=== PATIENT | female | born 1990 | race Caucasian/White ===

== ENCOUNTER 2022-01-21 06:40 | Day surgery (SDC) | payer BC, SELFPAY ==
[~2022-01-21] VITALS: Ht 160 cm; Wt 65.8 kg
[2022-01-21 07:31] LABS: HCG,QUAL RESULT NEGATIVE (NEGATIVE)
[2022-01-21] MEDS ORDERED: MEPERIDINE HCL/PF 25 MG/ML DISP.SYRIN IVP PRN (09:15)
[2022-01-21] MEDS ORDERED: MIDAZOLAM HCL 2 MG/2 ML VIAL (VERSED) IVP PRN (09:15)
[2022-01-21] MEDS ORDERED: METOCLOPRAMIDE HCL 10 MG/2 ML VIAL IVP PRN (09:15)
[2022-01-21] MEDS ORDERED: HYDROmorphone 1 MG/ML INJ. CARTRIDGE IVP PRN ×2 (09:15)
[2022-01-21] MEDS ORDERED: LR 1,000 ML IV SCH (09:15)
[2022-01-21] MEDS ORDERED: HYDROcodone/ACETAMIN 5-325 MG TAB (NORCO/ VICODIN) PO PRN (09:30)
[2022-01-21] MEDS ORDERED: ONDANSETRON HCL 4 MG/2 ML VIAL IVP PRN (09:30)
[2022-01-21] MEDS ORDERED: OXYCODONE/ACETAMINOPHEN 5-325 TABLET PO PRN ×2 (09:30)
[2022-01-21] MEDS ORDERED: NS 1000 ML IV.SOLN IV ONE (09:40)
[2022-01-21] MEDS ORDERED: ONDANSETRON HCL 4 MG/2 ML VIAL ONE (09:40)
[2022-01-21] MEDS ORDERED: CEFAZOLIN 1 GM IVPB PREMIX 50 ML IV ONE (09:40)
[2022-01-21] MEDS ORDERED: PROPOFOL 200MG/ 20ML VIAL (DIPRIVAN) IV ONE (09:40)
[2022-01-21] MEDS ORDERED: fentaNYL CITRATE/PF 100 MCG/2 ML AMP ONE (09:40)
[2022-01-21] MEDS ORDERED: MIDAZOLAM HCL 5 MG/ML VIAL (VERSED) IV ONE (09:40)
[2022-01-21] MEDS ORDERED: LR 1,000 ML IV.SOLN IV ONE (09:40)
[2022-01-21] MEDS ORDERED: DEXAMETHASONE SOD PHOSPHATE 4 MG/ML VIAL ONE (09:40)
[2022-01-21] MEDS ORDERED: SEVOFLURANE 15 MIN GAS INH ONE (09:40)
[2022-01-21 11:20] VITALS: BP_SYST 128
== END 2022-01-21 12:45 | disposition home or self-care (01) ==
LOC: SDS 06:40 → SMU 06:43 → SDS 12:45
PROVIDERS: ATTEND Specialist
DX: N93.8 Other specified abnormal uterine and vaginal bleeding (principal); E28.2 Polycystic ovarian syndrome; R93.89 Abnormal findings on diagnostic imaging of other specified body structures; J45.909 Unspecified asthma, uncomplicated; F41.9 Anxiety disorder, unspecified; Z88.1 Allergy status to other antibiotic agents; Z20.822 Contact with and (suspected) exposure to COVID-19; Z79.899 Other long term (current) drug therapy
CPT/HCPCS: 36415; 58558; 84703; 87426; 88305; C1819; J0690; J1100; J2250; J2405; J2704; J3010; J7030; J7120; U0003